=== PATIENT | male | born 1970 | race Caucasian/White ===

== ENCOUNTER → 2018-07-15 | Outpatient (CLI) | payer BC ==
--- NOTE | 2018-07-15 09:07 | Diagnostic Imaging Report ---
EXAM: Liver Ultrasound INDICATION: Fatty liver ^FATTY LIVER COMPARISON: None. TECHNIQUE: Transverse and longitudinal images of the liver were obtained. FINDINGS: Liver: Size: 16.9 cm in the right midclavicular line, normal Appearance: Increased echogenicity, smooth contour Mass: No focal masses Gallbladder: No gallbladder stones or sludge. No gallbladder wall thickening. The gallbladder wall measures 0.3 cm. The sonographic Hollingsworth sign is negative. Bile Ducts: Intrahepatic Ducts: No dilatation Common bile duct measures 0.5 cm. Pancreas within normal limits. Right kidney measures 12.8 cm and is otherwise unremarkable. Abdominal aorta and inferior vena cava unremarkable. Main portal vein diameter 1.3 cm otherwise unremarkable. Free Fluid: No ascites or pleural effusion IMPRESSION: Increased hepatic echogenicity could be due to fatty infiltration. Signed by: Dr. Cole Fish M.D. on 07/15/2018 9:04 AM
== END ==
LOC: US 07:37
PROVIDERS: ATTEND Emergency Medicine
DX: K76.0 Fatty (change of) liver, not elsewhere classified (principal)
CPT/HCPCS: 76705

== ENCOUNTER → 2022-01-27 | Outpatient (CLI) | payer OTHER | LOC: CT 13:36 | PROVIDERS: ATTEND Emergency Medicine | DX: Z72.0 Tobacco use (principal) | CPT/HCPCS: 71250 ==